=== PATIENT | female | born 1980 | race Caucasian/White ===

== ENCOUNTER → 2020-12-06 | Day surgery (SDC) | payer OTHER ==
[~2020-12-06] MED LIST: CITA20TA6 PO; FERR236T2 PO; HYDR12.58 PO; IV RINGERS,LACTATED 1000ML 1,000 ML IV SCH; LIDOCAINE 2% PF 5 ML VIAL. ONE; LOSA-73 PO; OMEP40CA45 PO; PROPOFOL 10 MG/ML (20ML) VIAL. IV ONE
[2020-12-06 09:45] VITALS: BP 156/68
--- NOTE | 2020-12-08 15:12 | PATHOLOGY ---
[facility] Accession Number: [id number] . 01 Material submitted: . gastrointestinal site - GASTRIC BIOPSY . 01 Clinical history: . HEARTBURN,PRE-GASTRIC BYPASS GERD EGD . 02 Diagnosis: Gastric biopsies: - Chronic gastritis, mild. (JPM:onesimo; 12/08/2020) S 12/08/2020 0959 Local . 02 Comment: Sections of the gastric biopsy reveal segments of gastric antral and gastric body mucosa showing congestion and mild chronic inflammation. A properly controlled immunoperoxidase stain for Helicobacter is negative for Helicobacter organisms. (JPM:onesimo; 12/08/2020) . . Special stain performed: Immunoperoxidase stain for Helicobacter . 02 Electronically signed: . Jay Carlisle MD, Pathologist NPI- [id number] . 01 Gross description: . The specimen is received in formalin, labeled "Erin Diaz, gastric biopsies". Received are four segments of pale solano tissue ranging in size from 0.3-0.5 cm in maximum dimensions. The specimen is submitted entirely in cassette A1. ([facility]; 12/07/2020) QAC/QAC 12/07/2020 1156 Local . 02 Pathologist provided ICD-10: K29.50 . 02 CPT . 467699, [id number] Specimen Comment: A courtesy copy of this report has been sent to [phone] Specimen Comment: Report sent to Performed at: 01 [facility] [address], [place] [id number] MD Michael Pollard MD Phone: [phone] Performed at: 02 [facility] [address] [place], [place] [id number] MD Jay Carlisle MD Phone: [phone]
== END | disposition home or self-care (01) ==
LOC: SURG 06:20
PROVIDERS: ATTEND Internal Medicine Gastroenterology
DX: R12 Heartburn (principal); K29.50 Unspecified chronic gastritis without bleeding; K31.89 Other diseases of stomach and duodenum; K21.9 Gastro-esophageal reflux disease without esophagitis; I10 Essential (primary) hypertension; G47.30 Sleep apnea, unspecified; F41.9 Anxiety disorder, unspecified; F32.9 Major depressive disorder, single episode, unspecified; Z87.891 Personal history of nicotine dependence; Z98.51 Tubal ligation status; Z98.890 Other specified postprocedural states; Z79.899 Other long term (current) drug therapy; Z72.89 Other problems related to lifestyle; Z20.822 Contact with and (suspected) exposure to COVID-19
CPT/HCPCS: 43239; 81025; 87426; 88305; 88342; J2704